=== PATIENT | male | born 1980 | race Caucasian/White ===

== ENCOUNTER 2018-04-16 15:51 | Emergency (ER) | payer MEDICAID ==
[~2018-04-16] VITALS: Ht 172.7 cm; Wt 75.0 kg
[2018-04-16 15:55] VITALS: Ht 172.7 cm; Wt 75.0 kg
[2018-04-16] MEDS ORDERED: KEFLEX500 MG PO (17:40)
[2018-04-16] MEDS ORDERED: ACETAMINOPHEN500 M1 PO (17:41)
[2018-04-16] MEDS ORDERED: IBUPROFEN800 MG PO (17:41)
[2018-04-16 18:31] VITALS: BP 164/91
== END 2018-04-16 18:32 | disposition other institution (70) ==
LOC: D.ER 15:51
DX: J01.80 Other acute sinusitis (principal); R11.2 Nausea with vomiting, unspecified